=== PATIENT | female | born 1945 | race Caucasian/White ===

== ENCOUNTER 2022-04-07 20:14 | Observation (INO) ==
[2022-04-07] MEDS ORDERED: Ondansetron 4 MG/2 ML VIAL IVP ONE (20:43)
[2022-04-07] MEDS ORDERED: 0.9 % Sodium Chloride 1,000 ML IVC ONE (20:43)
[2022-04-07 20:53] LABS: Basophils % 0.4 %; Eosinophils % 0.2 %; Hemoglobin 15.4 g/dL (11.5-15.4); Immature Granulocytes % 0.4 % (0-4); Lymphocytes # 1.4 K/mcL (0.6-4.6); Lymphocytes % 16.9 %; Mean Corpuscular HGB Conc 32.8 g/dL (31.6-35.5); Mean Corpuscular Volume 94.6 fL (83.0-100.0); Mean Platelet Volume 11.4 fL (9.4-12.4); Monocytes # 0.4 K/mcL (0.0-1.3); Monocytes % 5.1 %; Neutrophils # 6.4 K/mcL (1.6-8.9); Platelet Count 200 K/mcL (140-400); Red Blood Count 4.97 M/mcL (3.82-4.97); Red Cell Distribution Width 13.6 % (11.5-14.5); White Blood Count 8.3 K/mcL (4.3-11.1)
[2022-04-07 21:06] LABS: INR 1.1; Prothrombin Time 12.7 Seconds (9.4-12.1)
[2022-04-07 21:09] LABS: Activated Partial Thrombo Time 31.2 Seconds (26.0-36.0)
[2022-04-07 21:23] LABS: Lipase 28 Units/L (11-82); Troponin I < 0.03 ng/mL (< 0.04)
[2022-04-07 22:23] LABS: Alanine Aminotransferase < 3 Units/L (7-52); Albumin 3.8 g/dL (3.5-5.7); Albumin/Globulin Ratio 1.5 (1.1-2.2); Alkaline Phosphatase 65 Units/L (34-104); Aspartate Amino Transferase 8 Units/L (13-39); BUN/Creatinine Ratio 8 (6-26); Bilirubin,Direct 0.1 mg/dL (0.0-0.2); Bilirubin,Indirect 0.8 mg/dL (0.0-1.0); Bilirubin,Total 0.9 mg/dL (0.3-1.0); Blood Urea Nitrogen 6 mg/dL (8-23); Calcium 9.1 mg/dL (8.6-10.3); Carbon Dioxide 21 mEq/L (23-29); Chloride 104 mEq/L (98-107); Globulin 2.5 g/dL (2.4-3.5); Glucose 113 mg/dL (70-105); Osmolality,Calculated 282 (280-300); Potassium 4.1 mEq/L (3.5-5.1); Sodium 137 mEq/L (136-145); Total Protein 6.3 g/dL (6.4-8.9); eGFR For African Americans > 60 (> 60); eGFR For Non-African Americans > 60 (> 60)
[2022-04-07 22:28] LABS: Bilirubin,Urine Negative (Negative); Blood,Urine Negative (Negative); Clarity,Urine Turbid (Clear); Color,Urine Yellow (Yellow); Glucose,Urine (UA) Normal (Normal); Hyaline Casts,Urine Many per lpf (None Seen); Ketones,Urine 150 mg/dL (Negative); Leukocyte Esterase,Urine Negative (Negative); Mucus,Urine Many per lpf (None-Few); Nitrite,Urine Negative (Negative); Protein,Urine 100 mg/dL (Neg-Trace); Specific Gravity,Urine 1.022 (1.010-1.025); Squamous Epithelial Cell,Urine Few per hpf (None-Few)
[2022-04-07 22:50] LABS: Influenza A PCR Negative (Negative); Influenza B PCR Negative (Negative); Resp. Syncytial Virus PCR Negative (Negative)
[2022-04-07 22:51] LABS: SARS-CoV-2 by PCR (In House) Negative (Negative)
[2022-04-08] MEDS ORDERED: Naloxone 0.4 MG/ML INJ IVP PRN (00:15)
[2022-04-08] MEDS ORDERED: Ondansetron 4 MG/2 ML VIAL IVP PRN (00:15)
[2022-04-08] MEDS ORDERED: Acetaminophen 325 MG TABLET PO PRN (00:15)
[2022-04-08] MEDS ORDERED: *HR* HYDROcodone/Acet 5/325 mg TABLET PO PRN (00:15)
[2022-04-08] MEDS ORDERED: Melatonin 3 MG TABLET PO PRN (00:15)
[2022-04-08] MEDS: 0.9 % Sodium Chloride 1,000 ML IVC SCH ×2 (00:42→09:11)
[2022-04-08] MEDS ORDERED: Saliva Stimulant 44.3ml BOTTLE PO PRN ×2 (01:08→02:42)
[2022-04-08] MEDS ORDERED: Dextrose 4 GM Chewable Tablets PO PRN ×2 (01:50)
[2022-04-08] MEDS ORDERED: D5% in Water 1,000 ML IVC PRN (01:50)
[2022-04-08] MEDS ORDERED: *HR* Dextrose 50 % in Water (Syg) 50 ML SYRINGE IVP PRN (01:50)
[2022-04-08 02:25] LABS: Hematocrit 45.5 % (35.3-44.9); Hemoglobin 14.7 g/dL (11.5-15.4); Mean Corpuscular HGB Conc 32.3 g/dL (31.6-35.5); Mean Corpuscular Hemoglobin 30.9 pg (28.0-33.3); Mean Corpuscular Volume 95.8 fL (83.0-100.0); Mean Platelet Volume 11.9 fL (9.4-12.4); Platelet Count 200 K/mcL (140-400); Red Blood Count 4.75 M/mcL (3.82-4.97); Red Cell Distribution Width 13.3 % (11.5-14.5); White Blood Count 10.1 K/mcL (4.3-11.1)
[2022-04-08 02:32] LABS: INR 1.1; Prothrombin Time 12.5 Seconds (9.4-12.1)
[2022-04-08 02:35] LABS: Activated Partial Thrombo Time 32.2 Seconds (26.0-36.0)
[2022-04-08 02:42] LABS: Blood Urea Nitrogen 7 mg/dL (8-23); Calcium 8.8 mg/dL (8.6-10.3); Carbon Dioxide 25 mEq/L (23-29); Chloride 104 mEq/L (98-107); Glucose 102 mg/dL (70-105); Magnesium 1.7 mg/dL (1.6-2.6); Osmolality,Calculated 286 (280-300); Phosphorous 3.6 mg/dL (2.7-4.5); Potassium 3.9 mEq/L (3.5-5.1); Sodium 139 mEq/L (136-145)
[2022-04-08] MEDS ORDERED: Perflutren Lipid Microsphere 1.3 ML in 0.9 % Sodium Chloride 8.7 ML IVP PRN (02:44)
[2022-04-08 03:10] LABS: Thyroid Stimulating Hormone 0.879 mcIU/mL (0.340-5.600)
[2022-04-08 03:23] LABS: BUN/Creatinine Ratio 11 (6-26); eGFR For African Americans > 60 (> 60); eGFR For Non-African Americans > 60 (> 60)
[2022-04-08] MEDS ORDERED: Carbidopa/Levodopa 25/100 TABLET PO PRN (04:40)
[2022-04-08] MEDS: Carbidopa/Levodopa 25/100 TABLET PO SCH ×4 (05:55→15:01)
[2022-04-08] MEDS ORDERED: *HR* Enoxaparin 40 MG/0.4 ML SYRINGE SQ SCH (06:00)
[2022-04-08] MEDS ORDERED: Multivit/Ca/Min/Fe/FA 1 TAB TABLET PO SCH (09:00)
[2022-04-08] MEDS ORDERED: Chlorhexidine Rinse 15 ML MOUTHWASH MM SCH (09:00)
[2022-04-08] MEDS ORDERED: Lactobacillus 1 EACH CAP.SPRINK PO SCH (09:00)
[2022-04-08] MEDS ORDERED: cefTRIAXone 1,000 MG in 0.9 % Sodium Chloride Mini Bag 100 ML IVPB SCH (09:00)
[2022-04-08] MEDS: rOPINIRole 0.25 MG TABLET PO SCH ×2 (09:06→15:00)
[2022-04-08 09:41] LABS: C-Reactive Protein < 5 mg/L (Less than 10)
[2022-04-08] MEDS ORDERED: Isovue-370 500 ML BOTTLE IVP ONE (10:08)
[2022-04-08 10:29] VITALS: BP 127/70; PULSE 51; TEMP 98; O2SAT 93
== END 2022-04-08 17:17 | disposition home or self-care (01) ==
LOC: EMEROOARM 20:14 → 3BNU 20:14 → SUATTDRO 23:35 → 3BNU 04-08 00:20
PROVIDERS: ADMIT Internal Medicine; ATTEND Registered Nurse